=== PATIENT | female | born 1955 | race Caucasian/White ===

== ENCOUNTER → 2025-05-08 08:25 | Outpatient (BNVA) | payer MEDICARE, SELFPAY | PROVIDERS: Referring Provider Nurse Practitioner Family; Visit Provider Internal Medicine | DX: E04.2 Nontoxic multinodular goiter (principal); E05.90 Thyrotoxicosis, unspecified without thyrotoxic crisis or storm; R49.0 Dysphonia; R13.10 Dysphagia, unspecified | CPT/HCPCS: 36415; 83516; 84439; 84443; 84480; 99204 ==